=== PATIENT | male | born 1965 | race Hispanic/Latino ===

== ENCOUNTER 2016-11-21 16:21 | Outpatient (CLI) | payer BC ==
[2016-11-21 16:57] LABS: Hematocrit 42.2 % (35.5-45.6); Hemoglobin 13.9 gm/dl (11.8-15.2); Mean Corpuscular HGB Conc 33 % (32-34); Mean Corpuscular Hemoglobin 30 pg (28-32); Mean Corpuscular Volume 92 fl (84-94); Platelet Count 241 K/mm3 (140-440); Red Blood Count 4.59 M/mm3 (3.65-5.03); Red Cell Distribution Width 13.5 % (13.2-15.2); White Blood Count 5.3 K/mm3 (4.5-11.0)
[2016-11-21 17:26] LABS: Erythrocyte Sedimentation Rate 4 mm/Hr (0-20)
== END 2016-11-21 16:22 | disposition home or self-care (01) ==
LOC: LAB 16:21
PROVIDERS: ATTEND Specialist
DX: R53.1 Weakness (principal)
CPT/HCPCS: 36415; 82550; 84439; 84443; 85027; 85652